=== PATIENT | male | born 1965 | race Caucasian/White ===

== ENCOUNTER 2020-07-26 12:26 | Emergency (ER) | payer SELFPAY ==
[2020-07-26 12:36] VITALS: BP 167/81; PULSE 77; RESP 18; TEMP 36.3; O2SAT 100
--- NOTE | 2020-07-26 13:10 | ECG_ITS ---
Measurements Intervals [place] Rate: 72 P: 56 UT: 147 QRS: 43 QRSD: 96 T: 62 QT: 374 QTc: 410 Interpretive Statements SINUS RHYTHM POSSIBLE LEFT ATRIAL ENLARGEMENT LEFT VENTRICULAR HYPERTROPHY AND ST-T CHANGE BORDERLINE ST ABNORMALITY- LAT/HIGH LAT LEADS BORDERLINE ECG Electronically Signed On 07-26-2020 14:02:49 CDT by Say Kelley D.O.
--- NOTE | 2020-07-26 13:10 | PC.NURSE ---
1310- PT to desk. Pt states I am feeling much better now I think I am going to just go on home. I will come back if I start feeling that way again.
== END 2020-07-26 13:10 | disposition left against medical advice (07) ==
PROVIDERS: Emergency Provider Emergency Medicine
DX: R07.9 Chest pain, unspecified (principal)
CPT/HCPCS: 93005; 99199